=== PATIENT | male | born 1990 | race African-American/Black ===

== ENCOUNTER 2021-05-19 13:55 | Emergency (ER) | payer OTHER ==
[~2021-05-19] VITALS: Ht 188 cm; Wt 149.7 kg
[2021-05-19] MEDS ORDERED: MEDROLDOSEPACK PO (14:41)
[2021-05-19 15:08] VITALS: BP 141/70
== END 2021-05-19 15:08 | disposition home or self-care (01) ==
LOC: M.ERS 13:55
DX: M54.42 Lumbago with sciatica, left side (principal); Z98.890 Other specified postprocedural states

== ENCOUNTER 2021-06-10 11:27 | Emergency (ER) | payer OTHER ==
[~2021-06-10] VITALS: Ht 188 cm; Wt 154.2 kg
[~2021-06-10 11:27] MED LIST: MEDROLDOSEPACK PO
[2021-06-10] MEDS ORDERED: TRAMADOL 50 MG50 MG PO (12:35)
[2021-06-10] MEDS ORDERED: NAPROSYN500 MG PO (12:35)
[2021-06-10] MEDS ORDERED: FLEXERIL PO (12:37)
[2021-06-10 12:45] VITALS: BP 145/93
== END 2021-06-10 12:45 | disposition home or self-care (01) ==
LOC: M.ERS 11:27
DX: M54.42 Lumbago with sciatica, left side (principal); Z98.890 Other specified postprocedural states